=== PATIENT | male | born 1990 | race Caucasian/White ===

== ENCOUNTER 2018-01-18 20:39 | Emergency (ER) | payer OTHER ==
[2018-01-18 20:46] VITALS: RESP 18
[2018-01-18] MEDS ORDERED: SODIUM CHLORIDE 0.9% 1,000 ML IV STA (21:10)
[2018-01-18] MEDS ORDERED: SODIUM CHLORIDE 0.9% 500 ML IV STA (21:10)
[2018-01-18] MEDS ORDERED: RX INFO: IV CONTRAST WAS GIVEN 1 EACH MISC MISCELLANE PRN (21:10)
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
[2018-01-18 21:46] LABS: HCT 46.9 % (39.0-53.0); HGB 15.3 gm/dL (13.0-17.5); MCH 31.7 pg (25.0-35.0); MCHC 32.6 g/dL (31.0-37.0); Mean Platelet Volume 6.4; Platelet Count 418 k/uL (150-450); RBC 4.84 m/uL (4.30-5.90); RDW 12.3 % (11.5-15.5); WBC 6.1 k/uL (3.8-10.6)
[2018-01-18 21:53] LABS: Appearance,Urine Clear (Clear); Bilirubin,Urine Negative (Negative); Blood,Urine Moderate (Negative); Color,Urine Light Yellow; Glucose,Urine (UA) Negative (Negative); Ketones,Urine Negative (Negative); Leukocyte Esterase,Urine Negative (Negative); Mucus,Urine Rare /hpf; Nitrite,Urine Negative (Negative); PH, Urine 5.5 (5.0-8.0); Protein,Urine Negative (Negative); RBC,Urine 3 /hpf (0-5); Specific Gravity,Urine 1.004 (1.001-1.035); Urobilinogen,Urine <2.0 mg/dL (<2.0); WBC,Urine <1 /hpf (0-5)
[2018-01-18 21:56] LABS: ALT 58 U/L (21-72); AST 118 U/L (17-59); Albumin 4.7 g/dL (3.5-5.0); Alkaline Phosphatase 122 U/L (38-126); Anion Gap 19 mmol/L; Blood Urea Nitrogen 10 mg/dL (9-20); Calcium 9.3 mg/dL (8.4-10.2); Carbon Dioxide 27 mmol/L (22-30); Chloride 104 mmol/L (98-107); Glucose 90 mg/dL (74-99); Potassium 4.3 mmol/L (3.5-5.1); Sodium 150 mmol/L (137-145); Total Bilirubin 0.7 mg/dL (0.2-1.3); Total Protein 7.9 g/dL (6.3-8.2)
[2018-01-18 22:00] LABS: Amphetamine Screen,Urine Not Detected (NotDetected); Barbiturate Screen,Urine Not Detected (NotDetected); Benzodiazepines Screen,Urine Not Detected (NotDetected); Cocaine Screen,Urine Detected (NotDetected); Methadone Screen, Urine Not Detected (NotDetected); Opiate Screen,Urine Not Detected (NotDetected); Oxycodone Screen, Urine Not Detected (NotDetected); Phencyclidine Screen,Urine Not Detected (NotDetected); Tricyclic Antidepressant,Urine Not Detected (NotDetected); Urn Cannabinoid Scrn Not Detected (NotDetected)
[2018-01-18 22:02] LABS: Creatine Kinase 240 U/L (55-170)
[2018-01-18 22:06] LABS: Alcohol 349 mg/dL
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
--- NOTE | 2018-01-18 22:09 | XR ---
History pain. Comparison none. Technique single view. FINDINGS: Pelvic ring is intact. Proximal femurs and hip joints are intact. There is no sign of a fracture. Sac roiliac joints appear normal. CONCLUSION: Normal pelvis.
[2018-01-18 22:12] VITALS: BP 109/76; PULSE 89
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
[2018-01-18 22:15] LABS: Troponin I <0.012 ng/mL (0.000-0.034)
[2018-01-18 22:42] VITALS: TEMP 97.9
[2018-01-18 22:42] LABS: Basophils # (M) 0.24 k/uL (0-0.2); Eosinophils # (M) 0.61 k/uL (0-0.7); Lymphocytes # (M) 2.26 k/uL (1.0-4.8); Monocytes # (M) 0.67 k/uL (0-1.0); Neutrophils # (M) 2.32 k/uL (1.3-7.7); Neutrophils % (M) 38 %; Nucleated Red Blood Cells 0 /100 WBC (0-0); Total Cells Counted 100
== END 2018-01-18 22:43 | disposition home or self-care (01) ==
LOC: EC 20:39
DX: S60.811A Abrasion of right wrist, initial encounter (principal); F10.120 Alcohol abuse with intoxication, uncomplicated; Z87.891 Personal history of nicotine dependence; Z88.0 Allergy status to penicillin; Y90.8 Blood alcohol level of 240 mg/100 ml or more; V47.5XXA Car driver injured in collision with fixed or stationary object in traffic accident, initial encounter; Y92.410 Unspecified street and highway as the place of occurrence of the external cause
CPT/HCPCS: 36415; 93005; 80053; 82550; 82553; 84484; 85025; 81001; 80306; 80320; 72170; 71045; 72125; 70450; 71260; 74177; 99285; 96360; Q9967

== ENCOUNTER 2018-02-28 13:22 | Observation (INO) | payer OTHER ==
[2018-02-28] MEDS ORDERED: SODIUM CHLORIDE 0.9% 1,000 ML IV STA (13:37)
--- NOTE | 2018-02-28 13:57 | ED ---
Alcohol HPI - General Chief Complaint: Alcohol Stated Complaint: ETOH Time Seen by Provider: 02/28/18 13:35 Source: patient, RN notes reviewed Mode of arrival: ambulatory Limitations: altered mental status - History of Present Illness Initial Comments: This is a 27-year-old male brought to emergency department via EMS for alcohol intoxication. Patient was found laying on the ground sleeping. Patient does admit to daily alcohol use. Patient states he drank less than the fifth of alcohol today. Patient denies any physical complaints. Patient denies any chest pain, shortness breath, headache, dizziness, abdominal pain. Patient denies illicit drug use. - Related Data Allergies Allergy/AdvReac Type Severity Reaction Status Date / Time Penicillins Allergy Anaphylaxis Verified 02/28/18 13:31 Review of Systems ROS Statement: Those systems with pertinent positive or pertinent negative responses have been documented in the HPI. ROS Other: All systems not noted in ROS Statement are negative. Past Medical History Past Medical History: No Reported History History of Any Multi-Drug Resistant Organisms: MRSA Date of last positivie culture/infection: 2003 MDRO Source:: right arm Past Surgical History: No Surgical Hx Reported Past Psychological History: No Psychological Hx Reported Smoking Status: Former smoker Past Alcohol Use History: Abuse, Daily Past Drug Use History: None Reported General Exam Limitations: altered mental status General appearance: alert, in no apparent distress, appears intoxicated Head exam: Present: atraumatic, normocephalic, normal inspection Eye exam: Present: normal appearance, PERRL, EOMI. Absent: scleral icterus, conjunctival injection, periorbital swelling ENT exam: Present: normal exam, normal oropharynx, mucous membranes moist Neck exam: Present: normal inspection, full ROM. Absent: tenderness, meningismus, lymphadenopathy Respiratory exam: Present: normal lung sounds bilaterally. Absent: respiratory distress, wheezes, rales, rhonchi, stridor Cardiovascular Exam: Present: regular rate, normal rhythm, normal heart sounds. Absent: systolic murmur, diastolic murmur, rubs, gallop, clicks GI/Abdominal exam: Present: soft, normal bowel sounds. Absent: distended, tenderness, guarding, rebound, rigid Skin exam: Present: warm, dry, intact, normal color. Absent: rash Course Vital Signs 02/28/18 02/28/18 13:27 15:24 Temperature 97.2 F L 97.3 F L Pulse Rate 95 74 Respiratory 18 16 Rate Blood Pressure 118/72 101/64 O2 Sat by Pulse 95 97 Oximetry Medical Decision Making - Medical Decision Making 27-year-old male presented to emergency from it for alcohol intoxication. 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 Patient's blood alcohol level is 382. Patient be admitted for alcohol intoxication. - Lab Data Result diagrams: 02/28/18 14:00 02/28/18 14:00 Lab Results 02/28/18 02/28/18 02/28/18 Range/Units 14:00 14:00 15:24 WBC 7.3 (3.8-10.6) k/uL RBC 4.70 (4.30-5.90) m/uL Hgb 15.3 (13.0-17.5) gm/dL Hct 44.9 (39.0-53.0) % MCV 95.6 (80.0-100.0) fL MCH 32.6 (25.0-35.0) pg MCHC 34.1 (31.0-37.0) g/dL RDW 12.4 (11.5-15.5) % Plt Count 428 (150-450) k/uL Neutrophils % 48 % Lymphocytes % 34 % Monocytes % 7 % Eosinophils % 5 % Basophils % 2 % Neutrophils # 3.5 (1.3-7.7) k/uL Lymphocytes # 2.5 (1.0-4.8) k/uL Monocytes # 0.5 (0-1.0) k/uL Eosinophils # 0.4 (0-0.7) k/uL Basophils # 0.1 (0-0.2) k/uL Sodium 148 H (137-145) mmol/L Potassium 4.0 (3.5-5.1) mmol/L Chloride 105 (98-107) mmol/L Carbon Dioxide 23 (22-30) mmol/L Anion Gap 20 mmol/L BUN 8 L (9-20) mg/dL Creatinine 0.79 (0.66-1.25) mg/dL Est GFR (CKD-EPI)AfAm >90 (>60 ml/min/1.73 sqM) Est GFR (CKD-EPI)NonAf >90 (>60 ml/min/1.73 sqM) Glucose 89 (74-99) mg/dL Calcium 9.8 (8.4-10.2) mg/dL Magnesium 2.2 (1.6-2.3) mg/dL Total Bilirubin 2.4 H (0.2-1.3) mg/dL AST 133 H (17-59) U/L ALT 77 H (21-72) U/L Alkaline Phosphatase 107 (38-126) U/L Total Protein 8.2 (6.3-8.2) g/dL Albumin 5.0 (3.5-5.0) g/dL Amylase 74 (30-110) U/L Lipase 124 (23-300) U/L Urine Color Colorless Urine Appearance Clear (Clear) Urine pH 5.5 (5.0-8.0) Ur Specific [place] 1.002 (1.001-1.035) Urine Protein Negative (Negative) Urine Glucose (UA) Negative (Negative) Urine Ketones Negative (Negative) Urine Blood Negative (Negative) Urine Nitrite Negative (Negative) Urine Bilirubin Negative (Negative) Urine Urobilinogen <2.0 (<2.0) mg/dL Ur Leukocyte Esterase Negative (Negative) Urine Opiates Screen Not Detected (NotDetected) Ur Oxycodone Screen Not Detected (NotDetected) Urine Methadone Screen Not Detected (NotDetected) Ur Propoxyphene Screen Not Detected (NotDetected) Ur Barbiturates Screen Not Detected (NotDetected) U Tricyclic Antidepress Not Detected (NotDetected) Ur Phencyclidine Scrn Not Detected (NotDetected) Ur Amphetamines Screen Not Detected (NotDetected) U Methamphetamines Scrn Not Detected (NotDetected) U Benzodiazepines Scrn Not Detected (NotDetected) Urine Cocaine Screen Not Detected (NotDetected) U Marijuana (THC) Screen Not Detected (NotDetected) Serum Alcohol 382 mg/dL Disposition Clinical Impression: Alcoholic intoxication Disposition: ADMITTED IP TO THIS [facility] Condition: Stable Referrals: None,Stated [Primary Care Provider] - 1-2 days
[2018-02-28 14:22] LABS: Basophils # (A) 0.1 k/uL (0-0.2); Basophils % (A) 2 %; Eosinophils # (A) 0.4 k/uL (0-0.7); Eosinophils % (A) 5 %; HCT 44.9 % (39.0-53.0); HGB 15.3 gm/dL (13.0-17.5); Lymphocytes # (A) 2.5 k/uL (1.0-4.8); Lymphocytes % (A) 34 %; MCH 32.6 pg (25.0-35.0); MCHC 34.1 g/dL (31.0-37.0); MCV 95.6 fL (80.0-100.0); Mean Platelet Volume 6.2; Monocytes # (A) 0.5 k/uL (0-1.0); Monocytes % (A) 7 %; Neutrophils # (A) 3.5 k/uL (1.3-7.7); Neutrophils % (A) 48 %; Platelet Count 428 k/uL (150-450); RDW 12.4 % (11.5-15.5); WBC 7.3 k/uL (3.8-10.6)
[2018-02-28 14:31] LABS: ALT 77 U/L (21-72); AST 133 U/L (17-59); Alkaline Phosphatase 107 U/L (38-126); Amylase 74 U/L (30-110); Anion Gap 20 mmol/L; Blood Urea Nitrogen 8 mg/dL (9-20); Calcium 9.8 mg/dL (8.4-10.2); Carbon Dioxide 23 mmol/L (22-30); Chloride 105 mmol/L (98-107); Glucose 89 mg/dL (74-99); Lipase 124 U/L (23-300); Magnesium 2.2 mg/dL (1.6-2.3); Sodium 148 mmol/L (137-145); Total Bilirubin 2.4 mg/dL (0.2-1.3); Total Protein 8.2 g/dL (6.3-8.2)
[2018-02-28 14:45] LABS: Alcohol 382 mg/dL
[2018-02-28 15:42] LABS: Appearance,Urine Clear (Clear); Bilirubin,Urine Negative (Negative); Blood,Urine Negative (Negative); Color,Urine Colorless; Glucose,Urine (UA) Negative (Negative); Ketones,Urine Negative (Negative); Leukocyte Esterase,Urine Negative (Negative); Nitrite,Urine Negative (Negative); PH, Urine 5.5 (5.0-8.0); Protein,Urine Negative (Negative); Specific Gravity,Urine 1.002 (1.001-1.035); Urobilinogen,Urine <2.0 mg/dL (<2.0)
[2018-02-28 15:53] LABS: Amphetamine Screen,Urine Not Detected (NotDetected); Barbiturate Screen,Urine Not Detected (NotDetected); Benzodiazepines Screen,Urine Not Detected (NotDetected); Cocaine Screen,Urine Not Detected (NotDetected); Methadone Screen, Urine Not Detected (NotDetected); Opiate Screen,Urine Not Detected (NotDetected); Oxycodone Screen, Urine Not Detected (NotDetected); Phencyclidine Screen,Urine Not Detected (NotDetected); Tricyclic Antidepressant,Urine Not Detected (NotDetected); Urn Cannabinoid Scrn Not Detected (NotDetected)
[2018-02-28] MEDS ORDERED: ONDANSETRON 4 MG/2 ML VIAL IVP PRN (16:26)
[2018-02-28] MEDS ORDERED: LORazepam 2 MG/ML INJ IV PRN ×3 (16:27)
[2018-02-28] MEDS ORDERED: SODIUM CHLORIDE 0.9% 1,000 ML with MVI, ADULT NO.4 WITH VIT K 10 ML, THIAMINE 100 MG, F... IV ONE ×4 (17:00)
[2018-03-01 05:55] VITALS: BP 110/64; PULSE 87; RESP 20; TEMP 97.8
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
--- NOTE | 2018-03-02 00:26 | P.DS ---
Providers Date of admission: 02/28/18 16:25 Expected date of discharge: 03/01/18 Attending physician: Davidson Penaloza Primary care physician: Stated None Hospital Course: Discharge diagnosis Acute alcohol intoxication. On admission Alcohol abuse. 1 pint per day Asthma stable Please history of smoking Elevated liver enzymes possible alcohol hepatitis Mild dehydration with elevated sodium level 148 DVT prophylaxis Hospital course Patient is a 27-year-old male with a known history of asthma and previous history of smoking came to ER with alcohol intoxication. Patient was found laying on the ground sleeping. Patient does admit to daily alcohol use. Patient states he drank less than the fifth of alcohol today. Patient denies any physical complaints. Patient denies any chest pain, shortness breath, headache, dizziness, abdominal pain. Patient denies illicit drug use. Patient was intoxicated on admission 03/01/2018 Patient is more awake and oriented today. Denied any complaints of chest pain or short of breath no nausea vomiting or abdominal pain. Possible discharge home today. Tolerating oral diet. No other issues currently not in alcohol withdrawal. Plan: Patient was continued on IV fluids with thiamine and folic acid and monitor for withdrawal symptoms. Continue the symptomatic management and follow closely. Patient did improve clinically stable to be discharged home. Patient was counseled extensively for alcohol abuse. Patient will be discharged home in stable condition Discharge physical examination was done and vitals reviewed. Vital Signs - 24 hr 03/01/18 05:54 Temperature 97.8 F Pulse Rate [ 87 Right] Respiratory 20 Rate Blood Pressure 110/64 [Left Arm] O2 Sat by Pulse 97 Oximetry Patient Condition at Discharge: Stable Plan - Discharge Summary Discharge Rx Participant: Yes New Discharge Prescriptions: New Multivitamin [Multivitamins Adult Gummies] 1 each PO DAILY #30 tablet Thiamine [Vitamin B-1] 100 mg PO DAILY #14 tablet Discharge Medication List Multivitamin [Multivitamins Adult Gummies] 1 each PO DAILY #30 tablet 03/01/18 [ Rx] Thiamine [Vitamin B-1] 100 mg PO DAILY #14 tablet 03/01/18 [Rx] Follow up Appointment(s)/Referral(s): None,Stated [Primary Care Provider] - 1-2 days ([place] [facility]) Patient Instructions/Handouts: Thiamine (By mouth), Multivitamins, Adult Formula (By mouth), Alcohol Intoxication (DC) Activity/Diet/Wound Care/Special Instructions: No alcohol. Activity as tolerated. Diet as tolerated. Discharge Disposition: HOME SELF-CARE
== END 2018-03-01 12:45 | disposition home or self-care (01) ==
LOC: EC 13:22 → 5MS5E 16:25
PROVIDERS: ADMIT Internal Medicine; ATTEND Internal Medicine
DX: F10.129 Alcohol abuse with intoxication, unspecified (principal); Y90.8 Blood alcohol level of 240 mg/100 ml or more; E86.0 Dehydration; R74.8 Abnormal levels of other serum enzymes; J45.909 Unspecified asthma, uncomplicated; K58.9 Irritable bowel syndrome, unspecified; Z80.3 Family history of malignant neoplasm of breast; Z86.14 Personal history of Methicillin resistant Staphylococcus aureus infection; Z87.891 Personal history of nicotine dependence; Z88.0 Allergy status to penicillin; Z71.41 Alcohol abuse counseling and surveillance of alcoholic
CPT/HCPCS: 96360; 99285; 36415; 80053; 82150; 83690; 83735; 85025; 81003; 80306; 80320; G0378 ×2; J3411

== ENCOUNTER 2021-06-20 06:18 | Emergency (ER) | payer OTHER ==
[2021-06-20 06:25] VITALS: TEMP 98.7
[2021-06-20] MEDS ORDERED: KETOROLAC 15 MG/ML 1 ML VIAL IVP STA (06:37)
[2021-06-20] MEDS ORDERED: SODIUM CHLORIDE 0.9% 1,000 ML IV STA ×2 (06:37→08:07)
[2021-06-20] MEDS ORDERED: ONDANSETRON 4 MG/2 ML VIAL IVP STA (06:37)
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
[2021-06-20 07:29] LABS: Basophils # (A) 0.1 k/uL (0-0.2); Basophils % (A) 1 %; Eosinophils # (A) 0.3 k/uL (0-0.7); Eosinophils % (A) 2 %; HCT 46.2 % (39.0-53.0); Lymphocytes % (A) 15 %; MCH 32.3 pg (25.0-35.0); MCHC 34.6 g/dL (31.0-37.0); MCV 93.5 fL (80.0-100.0); Monocytes # (A) 0.7 k/uL (0-1.0); Monocytes % (A) 6 %; Neutrophils # (A) 9.4 k/uL (1.3-7.7); Neutrophils % (A) 73 %; Platelet Count 373 k/uL (150-450); RBC 4.95 m/uL (4.30-5.90); WBC 12.8 k/uL (3.8-10.6)
[2021-06-20 07:34] LABS: ALT 17 U/L (4-49); AST 52 U/L (17-59); African American GFR (CKD) >90 (>60 ml/min/1.73 sqM); Albumin 4.4 g/dL (3.5-5.0); Alkaline Phosphatase 74 U/L (38-126); Anion Gap 14 mmol/L; Blood Urea Nitrogen 12 mg/dL (9-20); Carbon Dioxide 26 mmol/L (22-30); Chloride 98 mmol/L (98-107); Glucose 100 mg/dL (74-99); Lipase 118 U/L (23-300); Non-African American GFR(CKD) >90 (>60 ml/min/1.73 sqM); Potassium 3.6 mmol/L (3.5-5.1); Sodium 138 mmol/L (137-145); Total Protein 7.9 g/dL (6.3-8.2)
[2021-06-20 07:40] LABS: Appearance,Urine Clear (Clear); Bilirubin,Urine 1+ (Negative); Blood,Urine Negative (Negative); Color,Urine Orange; Glucose,Urine (UA) Negative (Negative); Ketones,Urine 3+ (Negative); Leukocyte Esterase,Urine Negative (Negative); Mucus,Urine Many /hpf; Nitrite,Urine Negative (Negative); Protein,Urine 1+ (Negative); RBC,Urine 1 /hpf (0-5); Squamous Epithelial Cell,Urine 2 /hpf (0-4); WBC,Urine 1 /hpf (0-5)
[2021-06-20 08:22] VITALS: RESP 18
--- NOTE | 2021-06-20 09:12 | US ---
EXAMINATION TYPE: US abdomen limited DATE OF EXAM: 06/20/2021 COMPARISON: CT 01/18/18 CLINICAL HISTORY: rt side abdominal/flank pain, elevated bilirubin. N/V x 5 days EXAM MEASUREMENTS: Liver Length: 15.5 cm Gallbladder Wall: 0.1 cm CBD: 0.4 cm Right Kidney: 11.7 x 5.5 x 4.4 cm Pancreas: Tail obscured by overlying bowel gas Liver: wnl Gallbladder: No stones seen, 2 small polyps Evidence for sonographic Dawkins's sign: No CBD: wnl Right Kidney: No hydronephrosis or masses seen IMPRESSION: 2 small gallbladder polyps noted.
[2021-06-20] MEDS ORDERED: METOCLOPRAMIDE 5 MG/ML 2 ML VIAL IVP STA (09:36)
[2021-06-20 09:42] VITALS: BP 125/95; PULSE 82
== END 2021-06-20 10:25 | disposition home or self-care (01) ==
LOC: EC 06:18
DX: R11.2 Nausea with vomiting, unspecified (principal); E80.7 Disorder of bilirubin metabolism, unspecified; J45.909 Unspecified asthma, uncomplicated; F12.90 Cannabis use, unspecified, uncomplicated; Z88.0 Allergy status to penicillin; Z79.899 Other long term (current) drug therapy
CPT/HCPCS: 99284; 96374; 96375 ×2; 96361 ×2; 36415; 80053; 83690; 85025; 81001; 76705; J2765; J2405; J1885

== ENCOUNTER → 2021-07-05 | Outpatient (CLI) | payer OTHER ==
--- NOTE | 2021-07-05 10:01 | CT ---
EXAMINATION TYPE: CT abdomen wo con DATE OF EXAM: 07/05/2021 COMPARISON: CT 01/18/2018 HISTORY: rt flank pain, nausea and vomiting, loss of appetite CT DLP: 193.6 mGycm Automated exposure control for dose reduction was used. TECHNIQUE: Helical acquisition of images was performed from the lung bases through the top of iliac crest to include entire abdomen. CONTRAST: Performed without Oral Contrast and without IV contrast. FINDINGS: Lack of contrast could compromise sensitivity. LUNG BASES: No significant abnormality is appreciated. LIVER/GB: Liver shows low attenuation likely due to hepatic steatosis. Gallbladder is unremarkable. PANCREAS: No significant abnormality is seen. SPLEEN: No significant abnormality is seen. ADRENALS: No significant abnormality is seen. KIDNEYS: Punctate nonobstructive calcification present within the right kidney midpole measures only 3 to 4 mm. BOWEL: Fat halo sign noted within the colon may be normal variant. LYMPH NODES: No significan abnormality is appreciated. OSSEOUS STRUCTURES: There is a spinal curvature. FREE AIR: No Free Air visible ASCITES: None visible. RETROPERITONEAL ADENOPATHY: No Retroperitoneal Adenopathy visible. OTHER: IMPRESSION: NONOBSTRUCTIVE NEPHROLITHIASIS ON THE RIGHT. HEPATIC STEATOSIS. Noncontrast exam.
== END | disposition home or self-care (01) ==
LOC: RADCTMAIN 07:32
PROVIDERS: ATTEND Physician Assistant
DX: N20.0 Calculus of kidney (principal); K76.0 Fatty (change of) liver, not elsewhere classified
CPT/HCPCS: 74150

== ENCOUNTER 2021-08-17 10:59 | Inpatient (IN) | payer OTHER ==
[2021-08-17] MEDS ORDERED: ONDANSETRON 4 MG/2 ML VIAL IVP STA (13:30)
[2021-08-17] MEDS ORDERED: PANTOPRAZOLE 40 MG/10 ML VIAL IVP STA (13:30)
[2021-08-17] MEDS ORDERED: MORPHINE SULFATE 4 MG/ML SYRINGE IV STA (13:30)
[2021-08-17] MEDS ORDERED: SODIUM CHLORIDE 0.9% 1,000 ML IV STA (13:30)
[2021-08-17 13:31] LABS: Glucose,Whole Blood 112 mg/dL (75-99)
[2021-08-17] MEDS ORDERED: LORazepam 2 MG/ML INJ IV STA (13:31)
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
--- NOTE | 2021-08-17 14:39 | XR ---
EXAMINATION TYPE: XR KUB DATE OF EXAM: 08/17/2021 2:28 PM CLINICAL HISTORY: Pain and vomiting. TECHNIQUE: Two Upright KUB images of the abdomen are obtained. COMPARISON: Abdominal x-ray August 19, 2013. CT abdomen July 05, 2021 FINDINGS: Gas is seen in nondistended stomach. Scattered gas is seen in non-distended small and large bowel loops. There is no visceromegaly, pneumoperitoneum, or suspicious calcification appreciated. S cattered bilateral pelvic phleboliths redemonstrated. The lung bases are clear and the osseous struct ures are intact. IMPRESSION: Overall nonobstructive bowel gas pattern.
[2021-08-17 14:42] LABS: ALT 150 U/L (4-49); AST 541 U/L (17-59); African American GFR (CKD) >90 (>60 ml/min/1.73 sqM); Albumin 4.6 g/dL (3.5-5.0); Alcohol <10 mg/dL; Alkaline Phosphatase 154 U/L (38-126); Amylase 65 U/L (30-110); Anion Gap 18 mmol/L; Blood Urea Nitrogen 9 mg/dL (9-20); Calcium 9.5 mg/dL (8.4-10.2); Carbon Dioxide 20 mmol/L (22-30); Chloride 100 mmol/L (98-107); Glucose 115 mg/dL (74-99); Lipase 220 U/L (23-300); Magnesium 1.2 mg/dL (1.6-2.3); Non-African American GFR(CKD) >90 (>60 ml/min/1.73 sqM); Potassium 3.9 mmol/L (3.5-5.1); Sodium 138 mmol/L (137-145); Total Protein 7.6 g/dL (6.3-8.2)
[2021-08-17 14:43] LABS: Basophils % (A) 0 %; Eosinophils % (A) 0 %; HCT 45.7 % (39.0-53.0); HGB 15.6 gm/dL (13.0-17.5); Lymphocytes # (A) 0.6 k/uL (1.0-4.8); Lymphocytes % (A) 6 %; MCH 32.9 pg (25.0-35.0); MCHC 34.1 g/dL (31.0-37.0); MCV 96.4 fL (80.0-100.0); Mean Platelet Volume 8.1; Monocytes # (A) 0.7 k/uL (0-1.0); Monocytes % (A) 6 %; Neutrophils # (A) 8.8 k/uL (1.3-7.7); Neutrophils % (A) 87 %; Platelet Count 266 k/uL (150-450); RBC 4.74 m/uL (4.30-5.90); RDW 13.8 % (11.5-15.5); WBC 10.1 k/uL (3.8-10.6)
[2021-08-17 14:49] LABS: INR 1.1 (<1.2); Prothrombin Time 11.4 sec (9.0-12.0)
[2021-08-17] MEDS ORDERED: SODIUM CHLORIDE 0.9% 1,000 ML IV ONE (14:50)
[2021-08-17] MEDS ORDERED: MAGNESIUM SULFATE-D5W PMX 1 GM in DEXTROSE/WATER 1 100ML.BAG IVPB ONE (14:51)
[2021-08-17 14:56] LABS: Partial Thromboplastin Time 21.6 sec (22.0-30.0)
--- NOTE | 2021-08-17 15:35 | HP ---
HISTORY AND PHYSICAL DATE OF SERVICE: 08/17/2021 CHIEF COMPLAINT: Nausea and vomiting as well as shaking. HISTORY OF PRESENT ILLNESS: This 31-year-old gentleman with a past medical history of multiple medical problems, including history of asthma, history of allergies, history of MRSA, history of motion sickness, history of EtOH abuse, being followed by Dr. Murray in the [facility] in the outpatient setting, is complaining of weakness and tremors since yesterday. The patient does not have any fever. The patient is tremulous. Patient apparently had nausea and was unable to keep anything down. Patient came to [facility] and was admitted for further evaluation and treatment. The patient was drinking alcohol, a pint a day, and according to the patient and his , they stopped alcohol about a month ago without much problem. There is no history of any fever, rigors or chills. No history of headache, loss of consciousness, seizures at this time. PAST MEDICAL HISTORY: History of asthma, history of motion sickness, EtOH. HOME MEDICATIONS: None. ALLERGIES: PENICILLIN. FAMILY HISTORY: History of breast cancer and skin cancer in the family. SOCIAL HISTORY: History of alcohol. Previous history of smoking. History of THC. REVIEW OF SYSTEMS: ENT: No diminished hearing. No diminished vision. CARDIOVASCULAR SYSTEM: No angina, palpitations. RESPIRATORY SYSTEM: No cough, hemoptysis. GI: As mentioned earlier. : No dysuria. NERVOUS SYSTEM: No numbness, weakness. ALLERGY/IMMUNOLOGY: No asthma or hay fever. MUSCULOSKELETAL: As mentioned earlier. HEMATOLOGY/ONCOLOGY: No history of anemia. ENDOCRINE: No history of diabetes or hypothyroidism. CONSTITUTIONAL: As mentioned earlier. DERMATOLOGY: Negative. RHEUMATOLOGY: Negative. PSYCHIATRY: As mentioned earlier. PHYSICAL EXAMINATION: Patient alert and oriented x3. Pulse 104, blood pressure 143/89, respiration 20, temperature 97.8, pulse ox 97% on room air. HEENT: Conjunctivae normal. NECK: No jugular venous distention. CARDIOVASCULAR: S1, S2 muffled. RESPIRATION: Breath sounds diminished at the bases. A few scattered rhonchi and crackles. Expiratory wheezing also present. ABDOMEN: Soft. Mild diffuse discomfort. No guarding. No rigidity. No mass palpable. LEGS: No edema. No swelling. NERVOUS SYSTEM: Higher functions as mentioned earlier. Moves all 4 limbs. No focal motor or sensory deficit. LYMPHATICS: No lymph node palpable in neck, axillae or groin. SKIN: No ulcer, rash, bleeding. JOINTS: No active deforming arthropathy. LABS: Glucose 112. Other labs are awaited. ASSESSMENT: 1. Incessant nausea and vomiting; possible acute gastritis. 2. Severe shakes and nausea. Rule out withdrawal syndromes. 3. History of ETOH; last intake a month ago, according to the patient and the family. 4. History of chronic intermittent asthma, allergy-induced. 5. History of hematochezia. 6. History of migraine. 7. History of whiplash. 8. MRSA. 9. Remote history of nicotine dependence. 10.History of THC. 11.FULL CODE. RECOMMENDATIONS AND DISCUSSION: In this 31-year-old gentleman who presented with multiple complex medical issues, we will monitor the patient closely, continue the current medications, continue symptomatic treatment. Will initiate proton pump inhibitors. Symptomatic treatment with Ativan. Otherwise, the patient has not taken alcohol for the last one month, according to the family. I would also recommend cultures and rule out other causes of his symptoms as well. Overall guarded prognosis because of multiple complex medical issues. Further recommendations to follow. I would also recommend supplement vitamins. See orders for further details. MMODL / IJN: [id number] / MTDD
[2021-08-17] MEDS ORDERED: diphenhydrAMINE 50 MG/ML 1 ML VIAL IVP STA (16:12)
--- NOTE | 2021-08-17 16:34 | US ---
EXAMINATION TYPE: US gallbladder DATE OF EXAM: 08/17/2021 COMPARISON: CT July 05, 2021 CLINICAL HISTORY: Abdominal pain, nausea vomiting, hyperbilirubinemia. Abdominal pain, nausea, vomiti ng, hyperbilirubinemicic per order. EXAM MEASUREMENTS: Liver Length: 15.5 cm Gallbladder Wall: 0.2 cm CBD: 0.43 cm Right Kidney: 11.3 x 5.6 x 3.7 cm Limited due to gas. Pancreas: Tail not well seen due to gas. Liver: Appears very coarse with increased echogenicity. Gallbladder: Small hyperechoic area seen adjacent to wall: 0.7 x 0.4 x 0.5 cm. Evidence for sonographic Dawkins's sign: No CBD: Portions seen appear wnl. Right Kidney: No hydronephrosis or masses seen Visualized pancreas unremarkable. Visualized liver heterogeneously hyperechoic in appearance. No new surrounding ascites. No new intrahepatic or extra hepatic biliary dilatation. No shadowing mobile gal lstones within gallbladder lumen possible tiny polyp. No right-sided hydronephrosis. IMPRESSION: Heterogeneous hyperechoic appearance of liver consistent with known diffuse fatty infiltr ation. No new ascites or biliary dilatation noted.
[2021-08-17] MEDS ORDERED: NALOXONE 0.4 MG/ML 1 ML VIAL IV PRN (17:08)
[2021-08-17] MEDS ORDERED: PROCHLORPERAZINE SUPPOSITORY 25 MG SUPP RECTAL PRN (17:08)
[2021-08-17] MEDS ORDERED: LORazepam 2 MG/ML INJ IV PRN (17:10)
[2021-08-17] MEDS ORDERED: THIAMINE 100 MG/ML 2 ML VIAL IM STA (17:10)
[2021-08-17 17:18] LABS: Appearance,Urine Cloudy (Clear); Bilirubin,Urine Negative (Negative); Blood,Urine Trace (Negative); Color,Urine Orange; Glucose,Urine (UA) Negative (Negative); Ketones,Urine 2+ (Negative); Leukocyte Esterase,Urine Small (Negative); Mucus,Urine Many /hpf; Nitrite,Urine Negative (Negative); PH, Urine 6.5 (5.0-8.0); Protein,Urine 2+ (Negative); RBC,Urine 51 /hpf (0-5); Specific Gravity,Urine 1.037 (1.001-1.035); Squamous Epithelial Cell,Urine 8 /hpf (0-4); WBC,Urine 9 /hpf (0-5)
[2021-08-17 17:20] LABS: Amphetamine Screen,Urine Not Detected (NotDetected); Barbiturate Screen,Urine Not Detected (NotDetected); Benzodiazepines Screen,Urine Detected (NotDetected); Cocaine Screen,Urine Not Detected (NotDetected); Methadone Screen, Urine Not Detected (NotDetected); Opiate Screen,Urine Detected (NotDetected); Oxycodone Screen, Urine Not Detected (NotDetected); Phencyclidine Screen,Urine Not Detected (NotDetected); Tricyclic Antidepressant,Urine Not Detected (NotDetected); Urn Cannabinoid Scrn Detected (NotDetected)
[2021-08-17] MEDS: ONDANSETRON 4 MG/2 ML VIAL IVP PRN ×2 (17:46→22:08)
[2021-08-17] MEDS: LORazepam 2 MG/ML INJ IV PRN ×2 (17:55→22:06)
[2021-08-17] MEDS: SODIUM CHLORIDE 0.9% 1,000 ML IV SCH ×2 (17:55→21:04)
[2021-08-17] MEDS: PANTOPRAZOLE 40 MG/10 ML VIAL IVP SCH (22:08)
[2021-08-18] MEDS: THIAMINE 100 MG TAB PO SCH ×2 (07:03→16:53)
[2021-08-18] MEDS: SODIUM CHLORIDE 0.9% 1,000 ML IV SCH ×2 (07:03→16:53)
[2021-08-18] MEDS: PANTOPRAZOLE 40 MG/10 ML VIAL IVP SCH ×2 (07:03→22:02)
[2021-08-18 09:01] LABS: Basophils # (A) 0.08 X 10*3/uL (0.00-0.10); Basophils % (A) 1.6 %; Eosinophils # (A) 0.03 X 10*3/uL (0.04-0.35); Eosinophils % (A) 0.6 %; HCT 38.9 % (39.6-50.0); HGB 12.7 g/dL (13.0-17.0); Lymphocytes # (A) 1.44 X 10*3/uL (0.90-5.00); Lymphocytes % (A) 29.7 %; MCHC 32.6 g/dL (32.0-37.0); Mean Platelet Volume 10.6 fL (9.5-12.2); Monocytes # (A) 0.82 X 10*3/uL (0.20-1.00); Monocytes % (A) 16.9 %; Neutrophils # (A) 2.47 X 10*3/uL (1.80-7.70); Platelet Count 199 X 10*3/uL (140-440); RBC 3.97 X 10*6/uL (4.40-5.60); RDW 15.1 % (11.5-14.5); WBC 4.85 X 10*3/uL (4.50-10.00)
[2021-08-18 10:08] LABS: African American GFR (CKD) 143.7 (60.0-200.0); Albumin 3.5 g/dL (3.8-4.9); Albumin/Globulin Ratio 1.84 (1.60-3.17); BUN/Creat Ratio 11.29 Ratio (12.00-20.00); Blood Urea Nitrogen 7.9 mg/dL (9.0-27.0); Calcium 8.5 mg/dL (8.7-10.3); Globulin 1.9 g/dL (1.6-3.3); Potassium 3.9 mmol/L (3.5-5.5); Total Bilirubin 4.6 mg/dL (0.30-1.20); Total Protein 5.4 g/dL (6.2-8.2)
[2021-08-18 12:06] LABS: Hepatitis A Antibody IgM Nonreactive (Nonreactive); Hepatitis B Core IgM Nonreactive (Nonreactive); Hepatitis B Surface Antigen Nonreactive (Nonreactive); Hepatitis C IgG Antibody Nonreactive (Nonreactive)
[2021-08-18] MEDS: LORazepam 2 MG/ML INJ IV PRN ×2 (13:04→20:30)
[2021-08-18] MEDS ORDERED: Magnesium Replacement Protocol 1 EACH MISC MISCELLANE PRN (16:43)
--- NOTE | 2021-08-18 17:57 | PN ---
PROGRESS NOTE DATE OF SERVICE: 08/18/2021 This 31-year-old gentleman who was admitted with incessant nausea and vomiting also has a history of alcohol. The patient also had elevated bilirubin, possibly hepatitis. A gallbladder ultrasound was also done which showed heterogeneous possibly secondary to diffuse fatty infiltration. No chest pain. No palpitations. No fever. Past medical history reviewed. REVIEW OF SYSTEMS: CARDIOVASCULAR SYSTEM: No angina. RESPIRATION: As mentioned earlier. GI: As mentioned earlier. : No dysuria. NERVOUS SYSTEM: No numbness, weakness. CURRENT MEDICATIONS: Reviewed. They include Ativan, magnesium, Narcan, Zofran, Protonix, vitamin B1. PHYSICAL EXAMINATION: Patient is alert and oriented x3. Pulse 63, blood pressure 115/72, respiration 18, temperature 98.7, pulse ox 99% on room air. HEENT: Conjunctivae icteric. Oral mucosa moist. NECK: No jugular venous distention. CARDIOVASCULAR: S1, S2 muffled. RESPIRATION: Breath sounds diminished at the bases. A few scattered rhonchi. ABDOMEN: Soft, non-tender. NERVOUS SYSTEM: No focal deficit. LABS: WBC 4.2, hemoglobin 12.7. Otherwise, calcium is 8.5 and bilirubin is 4.6. AST is 485 and ALT is 138. Hepatitis panel is negative. ASSESSMENT: 1. Incessant nausea and vomiting, possibly acute gastritis. 2. Severe shakes and nausea, possibly withdrawal syndrome. 3. Possible delirium tremens. 4. History of ETOH and alcoholic hepatitis possibly. 5. History of chronic intermittent asthma, allergy-induced. 6. History of hematochezia. 7. History of migraine. 8. History of whiplash. 9. MRSA. 10.Remote history of nicotine dependence. 11.History of THC. 12.Hypomagnesemia. 13.FULL CODE. RECOMMENDATIONS AND DISCUSSION: I recommend to continue current medications, continue with the monitoring, symptomatic treatment. Hepatitis panel is negative at this time. I recommend repeat labs. Monitor bilirubin closely. I would also check serum ammonia, repeat labs. Guarded prognosis because of multiple complex medical issues. Further recommendations to follow. Lactic acid has normalized. Magnesium will be checked and corrected. MMODL / IJN: [id number] / MTDD
[2021-08-18] MEDS: ONDANSETRON 4 MG/2 ML VIAL IVP PRN (19:27)
[2021-08-19] MEDS: LORazepam 2 MG/ML INJ IV PRN ×4 (00:25→22:14)
[2021-08-19] MEDS: PANTOPRAZOLE 40 MG/10 ML VIAL IVP SCH ×2 (08:14→22:14)
[2021-08-19] MEDS: THIAMINE 100 MG TAB PO SCH ×2 (08:14→17:46)
[2021-08-19 11:34] LABS: Magnesium 1.8 mg/dL (1.5-2.4)
[2021-08-19 11:41] LABS: Basophils # (A) 0.07 X 10*3/uL (0.00-0.10); Basophils % (A) 1.2 %; Eosinophils # (A) 0.07 X 10*3/uL (0.04-0.35); Eosinophils % (A) 1.2 %; HCT 37.7 % (39.6-50.0); HGB 12.3 g/dL (13.0-17.0); Lymphocytes # (A) 1.55 X 10*3/uL (0.90-5.00); Lymphocytes % (A) 26.4 %; MCH 31.9 pg (27.0-32.0); MCHC 32.6 g/dL (32.0-37.0); MCV 97.7 fL (80.0-97.0); Mean Platelet Volume 10.8 fL (9.5-12.2); Monocytes # (A) 0.77 X 10*3/uL (0.20-1.00); Monocytes % (A) 13.1 %; Neutrophils % (A) 57.8 %; Platelet Count 180 X 10*3/uL (140-440); RBC 3.86 X 10*6/uL (4.40-5.60); RDW 14.6 % (11.5-14.5); WBC 5.88 X 10*3/uL (4.50-10.00)
[2021-08-19 11:43] LABS: African American GFR (CKD) 143.7 (60.0-200.0); Albumin 3.4 g/dL (3.8-4.9); Albumin/Globulin Ratio 1.89 (1.60-3.17); Anion Gap 10.7 mmol/L (10.00-18.00); BUN/Creat Ratio 8.14 Ratio (12.00-20.00); Blood Urea Nitrogen 5.7 mg/dL (9.0-27.0); Calcium 8.1 mg/dL (8.7-10.3); Carbon Dioxide 24.3 mmol/L (20.0-27.5); Globulin 1.8 g/dL (1.6-3.3); Potassium 3.9 mmol/L (3.5-5.5); Total Bilirubin 5.6 mg/dL (0.30-1.20); Total Protein 5.2 g/dL (6.2-8.2)
[2021-08-19] MEDS: SODIUM CHLORIDE 0.9% 1,000 ML IV SCH ×3 (12:07→17:46)
--- NOTE | 2021-08-19 13:39 | P.PN ---
Subjective Progress Note Date: 08/19/21 This is a 31-year-old male who was recently admitted with incessant nausea and vomiting also with a history of alcohol and is being closely monitored. Patient continues to have elevated bilirubin possibly hepatitis and bilirubin is elevated again today although liver functions are trending down. Patient is maintained on CIWA protocol and appears to be actively withdrawing with shakes. Patient denies any nausea or vomiting and tolerating diet. Lengthy discussion was had with the patient about discussing with family about ongoing alcohol use is patient could potentially benefit from alcohol rehab in the outpatient setting. Patient denies any chest pain or shortness of breath. Patient is extremely anxious with tremens noted. Irina level elevated at 40 today and will continue to monitor and repeat a.m. labs. Labs: White blood count is 5.88, hemoglobin is 12.3, platelets are 180, sodium is 135, potassium is 3.9, creatinine is 0.7, magnesium is 1.8, bilirubin is 5.6, AST down to 292, ALT down at 127, ammonia 40 Review of systems: Constitutional: No reports of fatigue, fever, or chills, extremely anxious Cardiovascular: No reports of chest pain or palpitations Respiratory: No reports of shortness of breath or cough GI: No reports of nausea, vomiting, or diarrhea : No reports of dysuria or retention Neurovascular: No reports of weakness or numbness All medications have been reviewed Active Medications Sodium Chloride (Saline 0.9%) 1,000 mls @ 130 mls/hr IV .Q7H42M [facility] Last Admin: 08/19/21 12:08 Dose: Not Given Documented by: Lorazepam (Lorazepam 2 Mg/Ml Inj) 1 mg IV Q2HR PRN PRN Reason: CIWA 8 or 9 Last Admin: 08/19/21 08:25 Dose: 1 mg Documented by: Lorazepam (Lorazepam 2 Mg/Ml Inj) 1 mg IV Q1HR PRN PRN Reason: CIWA 10 to 15 Last Admin: 08/17/21 17:55 Dose: 1 mg Documented by: Lorazepam (Lorazepam 2 Mg/Ml Inj) 2 mg IV Q10M PRN PRN Reason: CIWA 16 or higher Stop: 08/19/21 17:10 Miscellaneous Information (Magnesium Replacement Protocol 1 Each Misc) 1 each MISCELLANE DAILY PRN; Protocol PRN Reason: Per Protocol Naloxone HCl (Naloxone 0.4 Mg/Ml 1 Ml Vial) 0.2 mg IV Q2M PRN PRN Reason: Opioid Reversal Ondansetron HCl (Ondansetron 4 Mg/2 Ml Vial) 4 mg IVP Q8HR PRN PRN Reason: Nausea And Vomiting Last Admin: 08/18/21 19:27 Dose: 4 mg Documented by: Pantoprazole Sodium (Pantoprazole 40 Mg/10 Ml Vial) 40 mg IVP BID [facility] Last Admin: 08/19/21 08:14 Dose: 40 mg Documented by: Prochlorperazine Maleate (Prochlorperazine Suppository 25 Mg Supp) 25 mg RECTAL Q12HR PRN PRN Reason: Nausea And Vomiting Thiamine HCl (Thiamine 100 Mg Tab) 100 mg PO BID-W/MEALS [facility] Last Admin: 08/19/21 08:14 Dose: 100 mg Documented by: Physical Exam: Gen: This is a 31-year-old male awake, alert and oriented 3, well-developed, well-nourished. Anxious. Temp is 98.2F, pulse is 68, respirations are 18, blood pressure is 113/80, oxygen saturation is 98% on room air. HEENT: Head is atraumatic, normocephalic. Pupils equal, round. Sclerae is anicteric. NECK: Supple. No JVD. No lymphadenopathy. No thyromegaly. LUNGS: Diminished breath sounds bilaterally with no wheezing or rhonchi noted. No intercostal retractions. HEART: S1, S2 are muffled ABDOMEN: Soft. Bowel sounds are present. No masses. No tenderness. EXTREMITIES: No pedal edema. No calf tenderness. NEUROLOGICAL: Patient is awake, alert and oriented x3. Cranial nerves 2 through 12 are grossly intact. Tremens noted Assessment: Increased nausea and vomiting, possibly acute gastritis Severe shakes and nausea, possibly withdrawal syndrome Possible delirium tremens History of EtOH and alcoholic hepatitis possibly history of chronic intermittent asthma, ALLERGY induced History of hematochezia History of migraine history of whiplash MRSA Remote history of nicotine dependence History of THC Hypomagnesemia Possible PTSD as patient served in the [employer] Full code Plan: Recommend continue current medications and management and symptomatic treatment. We'll continue CIWA protocol as patient continues to have shakes and tremens noted. Will add low-dose oral Ativan as well for continued anxiety. Had a very lengthy discussion with the patient about discussing with his family about his continued alcohol use and possible alcohol rehab and needing a strong support system. Patient became extremely anxious during conversation and mildly guarded with questions and answers as he states he did go to alcohol rehab in the past before. Ammonia elevated although patient is alert and oriented 3 we'll monitor and continue with IV fluids and repeat labs. Patient denies any abdominal pain and will slowly increase diet as tolerated. Patient's LFTs are trending down and will repeat a.m. labs. Strongly encouraged discussing with family about treatment plan moving forward and possible alcohol rehab. We'll continue to monitor closely. Possible discharge in 24-48 hours. Objective - Vital Signs Vital signs: Vital Signs Temp 98.2 F 08/19/21 07:28 Pulse 68 08/19/21 07:28 Resp 18 08/19/21 07:28 BP 113/80 08/19/21 07:28 Pulse Ox 98 08/19/21 07:28 Intake & Output 08/18/21 08/19/21 08/19/21 18:59 06:59 18:59 Other: # Voids 5 - Labs CBC & Chem 7: 08/19/21 05:13 08/19/21 05:13 Labs: Abnormal Lab Results - Last 24 Hours (Table) 08/19/21 08/19/21 08/19/21 Range/Units 05:13 05:13 05:13 RBC 3.86 L (4.40-5.60) X 10*6/uL Hgb 12.3 L (13.0-17.0) g/dL Hct 37.7 L (39.6-50.0) % MCV 97.7 H (80.0-97.0) fL RDW 14.6 H (11.5-14.5) % BUN 5.7 L (9.0-27.0) mg/dL BUN/Creatinine Ratio 8.14 L (12.00-20.00) Ratio Calcium 8.1 L (8.7-10.3) mg/dL Total Bilirubin 5.60 H (0.30-1.20) mg/dL AST 292 H (14-35) U/L ALT 127 H (10-49) U/L Ammonia 40 H (<30) umol/L Total Protein 5.2 L (6.2-8.2) g/dL Albumin 3.4 L (3.8-4.9) g/dL
[2021-08-19] MEDS ORDERED: HYDROcodone/APAP 5-325MG 1 EACH TAB PO STA (19:07)
[2021-08-20] MEDS: SODIUM CHLORIDE 0.9% 1,000 ML IV SCH ×2 (02:36→20:24)
[2021-08-20] MEDS: LORazepam 2 MG/ML INJ IV PRN (03:20)
[2021-08-20 06:21] LABS: Basophils % (A) 0 %; Eosinophils # (A) 0.1 k/uL (0-0.7); Eosinophils % (A) 2 %; HCT 42.2 % (39.0-53.0); HGB 14.2 gm/dL (13.0-17.5); Lymphocytes # (A) 1.5 k/uL (1.0-4.8); Lymphocytes % (A) 22 %; MCH 31.8 pg (25.0-35.0); MCHC 33.6 g/dL (31.0-37.0); MCV 94.5 fL (80.0-100.0); Mean Platelet Volume 8.4; Monocytes # (A) 0.6 k/uL (0-1.0); Monocytes % (A) 9 %; Neutrophils # (A) 4.4 k/uL (1.3-7.7); Neutrophils % (A) 64 %; Platelet Count 177 k/uL (150-450); RBC 4.47 m/uL (4.30-5.90); RDW 13.3 % (11.5-15.5); WBC 6.9 k/uL (3.8-10.6)
[2021-08-20 06:26] VITALS: RESP 16
[2021-08-20 06:31] LABS: Chloride 99 mmol/L (98-107)
[2021-08-20 06:33] LABS: ALT 143 U/L (4-49); AST 441 U/L (17-59); African American GFR (CKD) >90 (>60 ml/min/1.73 sqM); Albumin 3.4 g/dL (3.5-5.0); Albumin/Globulin Ratio 1.2; Alkaline Phosphatase 108 U/L (38-126); Anion Gap 6 mmol/L; Blood Urea Nitrogen 5 mg/dL (9-20); Calcium 8.9 mg/dL (8.4-10.2); Carbon Dioxide 25 mmol/L (22-30); Globulin 2.9 g/dL; Glucose 75 mg/dL (74-99); Magnesium 1.8 mg/dL (1.6-2.3); Non-African American GFR(CKD) >90 (>60 ml/min/1.73 sqM); Potassium 3.3 mmol/L (3.5-5.1); Sodium 130 mmol/L (137-145); Total Bilirubin 4.1 mg/dL (0.2-1.3); Total Protein 6.3 g/dL (6.3-8.2)
[2021-08-20] MEDS ORDERED: Potassium Replacement Protocol 1 EACH MISC MISCELLANE PRN (07:30)
[2021-08-20] MEDS: PANTOPRAZOLE 40 MG/10 ML VIAL IVP SCH ×2 (08:01→20:24)
[2021-08-20] MEDS: THIAMINE 100 MG TAB PO SCH ×2 (08:01→16:51)
[2021-08-20] MEDS: LORazepam 1 MG TAB PO PRN ×2 (08:37→16:53)
[2021-08-20] MEDS: POTASSIUM CHLORIDE ER 20 MEQ TAB.ER PO SCH ×2 (08:37→11:22)
--- NOTE | 2021-08-21 01:19 | P.PN ---
Subjective Progress Note Date: 08/20/21 This is a 31-year-old male who was recently admitted with incessant nausea and vomiting also with a history of alcohol and is being closely monitored. Patient continues to have elevated bilirubin possibly hepatitis and bilirubin is elevated again today although liver functions are trending down. Patient is maintained on CIWA protocol and appears to be actively withdrawing with shakes. Patient denies any nausea or vomiting and tolerating diet. Lengthy discussion was had with the patient about discussing with family about ongoing alcohol use is patient could potentially benefit from alcohol rehab in the outpatient setting. Patient denies any chest pain or shortness of breath. Patient is extremely anxious with tremens noted. Ammonia level elevated at 40 today and will continue to monitor and repeat a.m. labs. 08/20/2021 Patient is seen in follow up this morning and tremens improving. Patient continues on CIWA protocol and will add oral anxiolytic. Patient is tolerating diet with no vomiting or nausea noted and will advance diet as tolerated. Family at the bedside and discussed outpatient rehab and AA for alcohol abuse. Bilirubin trending down and liver functions remain elevated. Encouraged strict alcohol abstinence. Potassium is 3.3 and will replace per protocol and repeat CMP in the am. Ammonia level normal today. Labs: White blood, 6.9, hemoglobin is 14.2, platelets are 177, sodium is 130, potassium 3.3, BUN 5, creatinine 0.54, magnesium 1.8, total bilirubin 4.1, AST 441, ALT 143, ammonia 23 Review of systems: Constitutional: No reports of fatigue, fever, or chills, extremely anxious Cardiovascular: No reports of chest pain or palpitations Respiratory: No reports of shortness of breath or cough GI: No reports of nausea, vomiting, or diarrhea : No reports of dysuria or retention Neurovascular: No reports of weakness or numbness All medications have been reviewed Active Medications Lorazepam (Lorazepam 2 Mg/Ml Inj) 1 mg IV Q2HR PRN PRN Reason: CIWA 8 or 9 Last Admin: 08/20/21 03:20 Dose: 1 mg Documented by: Lorazepam (Lorazepam 2 Mg/Ml Inj) 1 mg IV Q1HR PRN PRN Reason: CIWA 10 to 15 Last Admin: 08/19/21 22:14 Dose: 1 mg Documented by: Lorazepam (Lorazepam 1 Mg Tab) 1 mg PO Q8HR PRN PRN Reason: Anxiety Last Admin: 08/20/21 08:37 Dose: 1 mg Documented by: Miscellaneous Information (Magnesium Replacement Protocol 1 Each Misc) 1 each MISCELLANE DAILY PRN; Protocol PRN Reason: Per Protocol Miscellaneous Information (Potassium Replacement Protocol 1 Each Misc) 1 each MISCELLANE DAILY PRN; Protocol PRN Reason: Per Protocol Naloxone HCl (Naloxone 0.4 Mg/Ml 1 Ml Vial) 0.2 mg IV Q2M PRN PRN Reason: Opioid Reversal Ondansetron HCl (Ondansetron 4 Mg/2 Ml Vial) 4 mg IVP Q8HR PRN PRN Reason: Nausea And Vomiting Last Admin: 08/18/21 19:27 Dose: 4 mg Documented by: Pantoprazole Sodium (Pantoprazole 40 Mg/10 Ml Vial) 40 mg IVP BID [facility] Last Admin: 08/20/21 08:01 Dose: 40 mg Documented by: Prochlorperazine Maleate (Prochlorperazine Suppository 25 Mg Supp) 25 mg RECTAL Q12HR PRN PRN Reason: Nausea And Vomiting Thiamine HCl (Thiamine 100 Mg Tab) 100 mg PO BID-W/MEALS [facility] Last Admin: 08/20/21 08:01 Dose: 100 mg Documented by: Physical Exam: Gen: This is a 31-year-old male awake, alert and oriented 3, well-developed, well-nourished. Anxious. Temp is 98.6F, pulse is 63, respirations are 13, blood pressure is 114/76, oxygen saturation is 95% on room air. HEENT: Head is atraumatic, normocephalic. Pupils equal, round. Sclerae is anicteric. NECK: Supple. No JVD. No lymphadenopathy. No thyromegaly. LUNGS: Diminished breath sounds bilaterally with no wheezing or rhonchi noted. No intercostal retractions. HEART: S1, S2 are muffled ABDOMEN: Soft. Bowel sounds are present. No masses. No tenderness. EXTREMITIES: No pedal edema. No calf tenderness. NEUROLOGICAL: Patient is awake, alert and oriented x3. Cranial nerves 2 through 12 are grossly intact. Tremens noted and appears improved slightly Assessment: Increased nausea and vomiting, possibly acute gastritis Severe shakes and nausea, possibly withdrawal syndrome Possible delirium tremens History of EtOH abuse and alcoholic hepatitis possibly history of chronic intermittent asthma, ALLERGY induced History of hematochezia History of migraine history of whiplash MRSA Remote history of nicotine dependence History of THC Hypomagnesemia Possible PTSD as patient served in the [employer] Full code Plan: Recommend continue current medications and management and symptomatic treatment. We'll continue CIWA protocol as patient continues to have shakes and tremens noted. Continue low-dose oral Ativan as well for continued anxiety. Had another lengthy discussion with the patient and his family at the bedside and stated they had a discussion about his alcohol abuse of which he has been minimizing the severity with them and also discussed possible alcohol rehab and needing a strong support system. Patient hesitant about going to a rehab on discharge but will consider outpatient. Resources will be provided. Patient denies any abdominal pain and will slowly increase diet as tolerated. will repeat a.m. labs. We'll continue to monitor closely. Possible discharge in 24 hours. Objective - Vital Signs Vital signs: Vital Signs Temp 98.6 F 08/20/21 05:53 Pulse 63 08/20/21 05:53 Resp 16 08/20/21 05:53 BP 114/76 08/20/21 05:53 Pulse Ox 95 08/20/21 05:53 Intake & Output 08/19/21 08/20/21 08/20/21 18:59 06:59 18:59 Intake Total 1200 Balance 1200 Intake: Intake, IV Titration 1200 Amount Sodium Chloride 0.9% 1, 1200 000 ml @ 130 mls/hr IV . Q7H42M [facility] Rx#:[id number] Other: # Voids 3 3 - Labs CBC & Chem 7: 08/20/21 05:33 08/20/21 05:33 Labs: Abnormal Lab Results - Last 24 Hours (Table) 08/19/21 08/19/21 08/20/21 Range/Units 05:13 05:13 05:33 RBC 3.86 L (4.40-5.60) X 10*6/uL Hgb 12.3 L (13.0-17.0) g/dL Hct 37.7 L (39.6-50.0) % MCV 97.7 H (80.0-97.0) fL RDW 14.6 H (11.5-14.5) % Sodium 130 L (137-145) mmol/L Potassium 3.3 L (3.5-5.1) mmol/L BUN 5.7 L 5 L (9.0-27.0) mg/dL Creatinine 0.54 L (0.66-1.25) mg/dL BUN/Creatinine Ratio 8.14 L (12.00-20.00) Ratio Calcium 8.1 L (8.7-10.3) mg/dL Total Bilirubin 5.60 H 4.1 H (0.30-1.20) mg/dL AST 292 H 441 H (14-35) U/L ALT 127 H 143 H (10-49) U/L Total Protein 5.2 L (6.2-8.2) g/dL Albumin 3.4 L 3.4 L (3.8-4.9) g/dL
[2021-08-21] MEDS: LORazepam 1 MG TAB PO PRN ×2 (01:47→10:24)
[2021-08-21 06:46] LABS: ALT 152 U/L (4-49); AST 396 U/L (17-59); African American GFR (CKD) >90 (>60 ml/min/1.73 sqM); Albumin 3.2 g/dL (3.5-5.0); Albumin/Globulin Ratio 1.1; Alkaline Phosphatase 100 U/L (38-126); Anion Gap 6 mmol/L; Blood Urea Nitrogen 4 mg/dL (9-20); Calcium 8.8 mg/dL (8.4-10.2); Carbon Dioxide 27 mmol/L (22-30); Chloride 103 mmol/L (98-107); Globulin 2.9 g/dL; Glucose 78 mg/dL (74-99); Non-African American GFR(CKD) >90 (>60 ml/min/1.73 sqM); Potassium 3.6 mmol/L (3.5-5.1); Sodium 136 mmol/L (137-145); Total Bilirubin 2.8 mg/dL (0.2-1.3); Total Protein 6.1 g/dL (6.3-8.2)
[2021-08-21] MEDS: THIAMINE 100 MG TAB PO SCH (07:49)
[2021-08-21] MEDS: PANTOPRAZOLE 40 MG/10 ML VIAL IVP SCH (07:50)
[2021-08-21 08:00] VITALS: BP 124/84; PULSE 68; TEMP 98.2
[2021-08-21] MEDS ORDERED: PANTOPRAZOLE 40 MG TABLET PO SCH (21:00)
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
== END 2021-08-21 14:21 | disposition home or self-care (01) | DRG 897 ==
LOC: EC 10:59 → 4SSUR 17:08
PROVIDERS: ADMIT Hospitalist; ATTEND Hospitalist
DX: F10.231 Alcohol dependence with withdrawal delirium (principal); E87.2 Acidosis; E83.42 Hypomagnesemia; J45.20 Mild intermittent asthma, uncomplicated; Z20.822 Contact with and (suspected) exposure to COVID-19; K58.0 Irritable bowel syndrome with diarrhea; K70.9 Alcoholic liver disease, unspecified; K70.10 Alcoholic hepatitis without ascites; F43.10 Post-traumatic stress disorder, unspecified; Z80.3 Family history of malignant neoplasm of breast; Z80.8 Family history of malignant neoplasm of other organs or systems; Z86.14 Personal history of Methicillin resistant Staphylococcus aureus infection; Z87.891 Personal history of nicotine dependence
CPT/HCPCS: 36415; 74018; 76705; 80053; 80074; 80306; 80320; 81001; 82140; 82150; 83605; 83690; 83735; 85025; 85610; 85730; 87635; 93005; 96361; 96365; 96366; 96375; 99285

== ENCOUNTER 2021-09-01 04:35 | Emergency (ER) | payer OTHER ==
[2021-09-01 04:44] VITALS: TEMP 97
[2021-09-01] MEDS ORDERED: ONDANSETRON 4 MG/2 ML VIAL IVP STA (04:59)
[2021-09-01] MEDS ORDERED: SODIUM CHLORIDE 0.9% 1,000 ML IV ONE (04:59)
[2021-09-01] MEDS ORDERED: LORazepam 2 MG/ML INJ IV STA (04:59)
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
[2021-09-01 05:44] LABS: Basophils # (A) 0.1 k/uL (0-0.2); Basophils % (A) 2 %; Eosinophils # (A) 0.1 k/uL (0-0.7); Eosinophils % (A) 1 %; HCT 49.3 % (39.0-53.0); HGB 16.5 gm/dL (13.0-17.5); Lymphocytes # (A) 3.3 k/uL (1.0-4.8); Lymphocytes % (A) 40 %; MCH 33.1 pg (25.0-35.0); MCHC 33.5 g/dL (31.0-37.0); MCV 98.7 fL (80.0-100.0); Mean Platelet Volume 7.6; Monocytes # (A) 0.6 k/uL (0-1.0); Monocytes % (A) 8 %; Neutrophils # (A) 3.9 k/uL (1.3-7.7); Neutrophils % (A) 47 %; RDW 13.9 % (11.5-15.5); WBC 8.3 k/uL (3.8-10.6)
[2021-09-01 05:45] LABS: Platelet Count 639 k/uL (150-450)
[2021-09-01 06:09] LABS: ALT 71 U/L (4-49); AST 174 U/L (17-59); African American GFR (CKD) >90 (>60 ml/min/1.73 sqM); Albumin 4.8 g/dL (3.5-5.0); Alcohol 78 mg/dL; Alkaline Phosphatase 121 U/L (38-126); Amylase 131 U/L (30-110); Anion Gap 18 mmol/L; Blood Urea Nitrogen 11 mg/dL (9-20); Carbon Dioxide 20 mmol/L (22-30); Chloride 103 mmol/L (98-107); Glucose 104 mg/dL (74-99); Lipase 219 U/L (23-300); Magnesium 1.9 mg/dL (1.6-2.3); Non-African American GFR(CKD) >90 (>60 ml/min/1.73 sqM); Potassium 4.4 mmol/L (3.5-5.1); Sodium 141 mmol/L (137-145); Total Bilirubin 1.8 mg/dL (0.2-1.3); Total Protein 8.2 g/dL (6.3-8.2)
[2021-09-01 07:34] VITALS: BP 133/101; PULSE 108; RESP 18
== END 2021-09-01 07:34 | disposition home or self-care (01) ==
LOC: EC 04:35
DX: F10.239 Alcohol dependence with withdrawal, unspecified (principal); J45.909 Unspecified asthma, uncomplicated; F12.90 Cannabis use, unspecified, uncomplicated
CPT/HCPCS: 36415; 80053; 82150; 83690; 83735; 85025; 80320; 99284; 96374; 96375; J2060; J2405

== ENCOUNTER 2021-10-13 00:03 | Observation (INO) | payer OTHER ==
[2021-10-13] MEDS ORDERED: ONDANSETRON 4 MG/2 ML VIAL IVP STA (01:18)
[2021-10-13] MEDS ORDERED: LORazepam 2 MG/ML INJ IV STA (01:19)
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
[2021-10-13] MEDS ORDERED: SODIUM CHLORIDE 0.9% 1,000 ML with MVI, ADULT NO.4 WITH VIT K 10 ML, THIAMINE 100 MG, F... IV ONE ×4 (02:00)
[2021-10-13 02:05] LABS: Basophils # (A) 0.1 k/uL (0-0.2); Basophils % (A) 1 %; Eosinophils % (A) 0 %; HCT 52.1 % (39.0-53.0); HGB 17.9 gm/dL (13.0-17.5); Lymphocytes # (A) 3.9 k/uL (1.0-4.8); Lymphocytes % (A) 35 %; MCH 32.7 pg (25.0-35.0); MCHC 34.3 g/dL (31.0-37.0); MCV 95.4 fL (80.0-100.0); Mean Platelet Volume 6.9; Monocytes # (A) 0.5 k/uL (0-1.0); Monocytes % (A) 5 %; Neutrophils # (A) 6.1 k/uL (1.3-7.7); Neutrophils % (A) 56 %; Platelet Count 431 k/uL (150-450); RBC 5.46 m/uL (4.30-5.90); WBC 10.9 k/uL (3.8-10.6)
[2021-10-13 02:16] LABS: INR 1.1 (<1.2); Prothrombin Time 11.3 sec (9.0-12.0)
[2021-10-13] MEDS ORDERED: NALOXONE 0.4 MG/ML 1 ML VIAL IV PRN (03:06)
[2021-10-13] MEDS ORDERED: LORazepam 2 MG/ML INJ IV PRN ×2 (03:08)
[2021-10-13] MEDS: SODIUM CHLORIDE 0.9% 1,000 ML IV SCH ×2 (03:48→17:27)
[2021-10-13 04:05] LABS: ALT 30 U/L (4-49); AST 66 U/L (17-59); African American GFR (CKD) >90 (>60 ml/min/1.73 sqM); Albumin 4.4 g/dL (3.5-5.0); Alkaline Phosphatase 75 U/L (38-126); Anion Gap 12 mmol/L; Blood Urea Nitrogen 21 mg/dL (9-20); Calcium 8.6 mg/dL (8.4-10.2); Carbon Dioxide 25 mmol/L (22-30); Chloride 103 mmol/L (98-107); Glucose 122 mg/dL (74-99); Non-African American GFR(CKD) >90 (>60 ml/min/1.73 sqM); Potassium 4.9 mmol/L (3.5-5.1); Sodium 140 mmol/L (137-145); Total Bilirubin 2.4 mg/dL (0.2-1.3); Total Protein 7.5 g/dL (6.3-8.2)
[2021-10-13] MEDS: ONDANSETRON 4 MG/2 ML VIAL IVP PRN ×2 (06:58→14:24)
[2021-10-13] MEDS: FAMOTIDINE 20 MG TAB PO SCH ×2 (07:42→19:42)
[2021-10-13] MEDS: LORazepam 2 MG/ML INJ IV PRN ×5 (07:43→19:43)
[2021-10-13 09:33] LABS: Amorphous Sediment,Urine Rare /hpf; Appearance,Urine Cloudy (Clear); Bacteria,Urine Rare /hpf; Bilirubin,Urine Negative (Negative); Blood,Urine Negative (Negative); Color,Urine Yellow; Glucose,Urine (UA) Negative (Negative); Hyaline Casts,Urine 10 /lpf (0-2); Ketones,Urine Negative (Negative); Leukocyte Esterase,Urine Negative (Negative); Mucus,Urine Many /hpf; Nitrite,Urine Negative (Negative); PH, Urine 5.5 (5.0-8.0); Protein,Urine 1+ (Negative); RBC,Urine 1 /hpf (0-5); Specific Gravity,Urine 1.034 (1.001-1.035); Squamous Epithelial Cell,Urine 2 /hpf (0-4); Urobilinogen,Urine <2.0 mg/dL (<2.0); WBC,Urine 2 /hpf (0-5)
[2021-10-13 09:48] LABS: Amphetamine Screen,Urine Not Detected (NotDetected); Barbiturate Screen,Urine Not Detected (NotDetected); Benzodiazepines Screen,Urine Detected (NotDetected); Cocaine Screen,Urine Not Detected (NotDetected); Methadone Screen, Urine Not Detected (NotDetected); Opiate Screen,Urine Not Detected (NotDetected); Oxycodone Screen, Urine Not Detected (NotDetected); Phencyclidine Screen,Urine Not Detected (NotDetected); Tricyclic Antidepressant,Urine Not Detected (NotDetected); Urn Cannabinoid Scrn Not Detected (NotDetected)
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
--- NOTE | 2021-10-13 11:25 | P.DS ---
Providers Date of admission: 10/13/21 03:03 Attending physician: Leigh Andre Primary care physician: [facility] Hospital Course: Refer to my HPI for further details Plan - Discharge Summary Discharge Rx Participant: Yes New Discharge Prescriptions: New chlordiazePOXIDE HCl [Librium] 25 mg PO QID 3 Days #15 capsule Sertraline HCl [Zoloft] 50 mg PO DAILY #30 tablet No Action Folic Acid 1 mg PO DAILY Vitamin E (Dl,Tocopheryl Acet) [Vitamin E (400 Iu = 180 mg)] 400 unit PO DAILY Ubidecarenone [Co Q-10] 100 mg PO DAILY Thiamine [Vitamin B-1] 100 mg PO DAILY Discharge Medication List Folic Acid 1 mg PO DAILY 10/13/21 [History] Sertraline HCl [Zoloft] 50 mg PO DAILY #30 tablet 10/13/21 [Rx] Thiamine [Vitamin B-1] 100 mg PO DAILY 10/13/21 [History] Ubidecarenone [Co Q-10] 100 mg PO DAILY 10/13/21 [History] Vitamin E (Dl,Tocopheryl Acet) [Vitamin E (400 Iu = 180 mg)] 400 unit PO DAILY 10/13/21 [History] chlordiazePOXIDE HCl [Librium] 25 mg PO QID 3 Days #15 capsule 10/13/21 [Rx] Follow up Appointment(s)/Referral(s): [facility] [NON-STAFF] - 1 Week [facility] [Primary Care Provider] - 3 Days
[2021-10-13] MEDS: THIAMINE 100 MG TAB PO SCH (17:26)
[2021-10-13] MEDS ORDERED: KETOROLAC 30 MG/ML 1 ML VIAL IVP STA (19:25)
[2021-10-13] MEDS ORDERED: ACETAMINOPHEN TAB 325 MG TAB PO PRN (19:25)
[2021-10-14] MEDS: LORazepam 2 MG/ML INJ IV PRN ×2 (01:35→06:49)
[2021-10-14] MEDS: SODIUM CHLORIDE 0.9% 1,000 ML IV SCH (09:21)
[2021-10-14] MEDS: FAMOTIDINE 20 MG TAB PO SCH (09:21)
[2021-10-14] MEDS: THIAMINE 100 MG TAB PO SCH (09:21)
--- NOTE | 2021-10-14 11:24 | P.DS ---
Providers Date of admission: 10/13/21 03:03 Attending physician: Leigh Andre Primary care physician: [facility] Hospital Course: Patient is a 31-year-old male admitted for alcohol abuse and patient started drinking about 5 days ago patient was was sober for many months. Patient used to drink about a pint of hard liquor every day patient has not been drinking that much for last 5 days and started drinking 5 days ago. Patient had withdrawals in the past but was not severe enough to be hospitalized. Patient denied any fever chills abdominal pain nausea vomiting patient is definitely depressed denied any suicidal or homicidal ideations although patient has financial issues because of which patient is going to be depressed. 10/14/2021 Patient was bit tachycardic as today because of which are a held his discharge yesterday. Patient didn't have any significant withdrawals patient heart rate is better today. Patient only required 1 dose of Ativan today patient will be discharged on weaning doses of Librium and will be discharged today. PHYSICAL EXAMINATION: GENERAL: The patient is alert and oriented x3, not in any acute distress. Well developed, well nourished. HEENT: Pupils are round and equally reacting to light. EOMI. No scleral icterus. No conjunctival pallor. Normocephalic, atraumatic. No pharyngeal erythema. No thyromegaly. CARDIOVASCULAR: S1 and S2 present. No murmurs, rubs, or gallops. PULMONARY: Chest is clear to auscultation, no wheezing or crackles. ABDOMEN: Soft, nontender, nondistended, normoactive bowel sounds. No palpable organomegaly. MUSCULOSKELETAL: No joint swelling or deformity. EXTREMITIES: No cyanosis, clubbing, or pedal edema. NEUROLOGICAL: Gross neurological examination did not reveal any focal deficits. SKIN: No rashes. Assessment and plan -Alcohol abuse: Counseling was provided extensively patient is willing to quit alcohol and social work was consulted who will provide all the resources for alcohol rehabilitation. Patient does have vivitrol at home she doesn't have any significant withdrawals will be discharged today -Alcohol withdrawal: Patient received 1 dose of Ativan. Patient is presently on Ativan CIWA protocol. he started drinking only 5 days ago. Patient will be discharged on the weaning dose of Librium. Patient will follow with, to mental health -Major depression: Patient does take BuSpar used to take Zoloft and requesting Zoloft prescription patient will be provided with this prescription also counseled antidepressant will be effective with alcohol use -Mild leukocytosis reactive without any evidence of infection Patient will be discharged today with weaning dose of Librium and antidepressants. Plan - Discharge Summary Discharge Rx Participant: Yes New Discharge Prescriptions: New chlordiazePOXIDE HCl [Librium] 25 mg PO QID 3 Days #15 capsule Sertraline HCl [Zoloft] 50 mg PO DAILY #30 tablet No Action Folic Acid 1 mg PO DAILY Vitamin E (Dl,Tocopheryl Acet) [Vitamin E (400 Iu = 180 mg)] 400 unit PO DAILY Ubidecarenone [Co Q-10] 100 mg PO DAILY Thiamine [Vitamin B-1] 100 mg PO DAILY Discharge Medication List Folic Acid 1 mg PO DAILY 10/13/21 [History] Sertraline HCl [Zoloft] 50 mg PO DAILY #30 tablet 10/13/21 [Rx] Thiamine [Vitamin B-1] 100 mg PO DAILY 10/13/21 [History] Ubidecarenone [Co Q-10] 100 mg PO DAILY 10/13/21 [History] Vitamin E (Dl,Tocopheryl Acet) [Vitamin E (400 Iu = 180 mg)] 400 unit PO DAILY 10/13/21 [History] chlordiazePOXIDE HCl [Librium] 25 mg PO QID 3 Days #15 capsule 10/13/21 [Rx] Follow up Appointment(s)/Referral(s): [facility] [NON-STAFF] - 1 Week (Office not answering.. Please call to schedule appointment) [facility],Clinic [Primary Care Provider] - 10/17/21 1:00 pm Patient Instructions/Handouts: Alcohol Intoxication (DC), Abuse of Alcohol (DC) Discharge Disposition: HOME SELF-CARE
[2021-10-14 14:29] VITALS: BP 130/87; PULSE 83; RESP 18; TEMP 97.9
--- NOTE | 2021-10-19 10:10 | CDI ---
Dear Dr. Reddy, Please clarify if the patient with history of alcoholism is in withdrawl during this visit. Patient arrived to the EC with alcohol level of 327. CIWA score is 8. The patient is experiencing nausea, vomiting, shakiness, tremors, sweating, anxiety and agitation for the past hours as reported in the EC department. Pt given Zofran, Ativan and Parenteral Vitamin Supplement in the EC. Upon discharge, patient received 1 dose of Ativan and will be discharged on weaning dose of Librium. He has vivitrol at home and doesn't have any significant withdrawls. The patient was counseled on alcohol abuse and rehabilitation. Please document below the line, if the patient was or was not in alcohol withdrawl during this visit. Thank you, Gisel Santana Patient had alcohol withdrawals during hospitalization [facility]
== END 2021-10-14 15:45 | disposition home or self-care (01) ==
LOC: EC 00:03 → 4SSUR 03:03
PROVIDERS: ADMIT Hospitalist; ATTEND Hospitalist
DX: F10.239 Alcohol dependence with withdrawal, unspecified (principal); F10.229 Alcohol dependence with intoxication, unspecified; R00.0 Tachycardia, unspecified; F32.9 Major depressive disorder, single episode, unspecified; D72.829 Elevated white blood cell count, unspecified; J45.909 Unspecified asthma, uncomplicated; H93.19 Tinnitus, unspecified ear; E86.0 Dehydration; F41.9 Anxiety disorder, unspecified; G43.909 Migraine, unspecified, not intractable, without status migrainosus; L85.3 Xerosis cutis; K58.0 Irritable bowel syndrome with diarrhea; Z20.822 Contact with and (suspected) exposure to COVID-19; Z71.41 Alcohol abuse counseling and surveillance of alcoholic; Z71.89 Other specified counseling; Z59.9 Problem related to housing and economic circumstances, unspecified; Z86.14 Personal history of Methicillin resistant Staphylococcus aureus infection; Z87.828 Personal history of other (healed) physical injury and trauma; Z87.891 Personal history of nicotine dependence; Z79.899 Other long term (current) drug therapy; Z88.0 Allergy status to penicillin; Y90.8 Blood alcohol level of 240 mg/100 ml or more; Z80.3 Family history of malignant neoplasm of breast; Z80.8 Family history of malignant neoplasm of other organs or systems
CPT/HCPCS: 96376 ×2; 96375 ×2; 96374; 99284; 36415; 80053; 82150; 83690; 83735; 85025; 85610; 81001; 80306; 80320; 87635; G0378 ×2; J2060 ×2; J3411; J2405; J1885

== ENCOUNTER 2021-10-19 15:53 | Observation (INO) | payer OTHER ==
[2021-10-19] MEDS ORDERED: SODIUM CHLORIDE 0.9% 1,000 ML with THIAMINE 100 MG, FOLIC ACID 1 MG IV ONE ×3 (16:26)
[2021-10-19] MEDS ORDERED: MULTIVITAMINS, THERA 1 EACH TAB PO STA (16:28)
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
[2021-10-19 17:38] LABS: Prothrombin Time 10.9 sec (9.0-12.0)
[2021-10-19 17:54] LABS: Acetaminophen <10.0 ug/mL
[2021-10-19 18:01] LABS: MCH 32.6 pg (25.0-35.0); MCHC 33.5 g/dL (31.0-37.0); MCV 97.5 fL (80.0-100.0); Mean Platelet Volume 7.1; Platelet Count 344 k/uL (150-450); RBC 4.51 m/uL (4.30-5.90); RDW 13.5 % (11.5-15.5); WBC 6.1 k/uL (3.8-10.6)
[2021-10-19 18:04] LABS: HGB 14.7 gm/dL (13.0-17.5)
[2021-10-19 18:05] LABS: Alcohol 349 mg/dL
[2021-10-19 18:29] LABS: Eosinophils # (M) 0.31 k/uL (0-0.7); Lymphocytes # (M) 2.99 k/uL (1.0-4.8); Metamyelocytes # (M) 0.12 k/uL (0); Metamyelocytes % 2 %; Monocytes # (M) 0.49 k/uL (0-1.0); Neutrophils % (M) 36 %; Nucleated Red Blood Cells 0 /100 WBC (0-0); Total Cells Counted 100
[2021-10-19] MEDS ORDERED: LORazepam 2 MG/ML INJ IV PRN ×3 (18:41)
[2021-10-19] MEDS ORDERED: THIAMINE 100 MG/ML 2 ML VIAL IM STA (18:41)
[2021-10-19] MEDS ORDERED: ACETAMINOPHEN TAB 325 MG TAB PO PRN (18:43)
[2021-10-19] MEDS ORDERED: ONDANSETRON 4 MG/2 ML VIAL IVP PRN (18:43)
[2021-10-19] MEDS ORDERED: NALOXONE 0.4 MG/ML 1 ML VIAL IV PRN (18:43)
[2021-10-19 19:23] LABS: ALT 26 U/L (4-49); AST 56 U/L (17-59); African American GFR (CKD) >90 (>60 ml/min/1.73 sqM); Albumin 4.5 g/dL (3.5-5.0); Alkaline Phosphatase 62 U/L (38-126); Anion Gap 15 mmol/L; Blood Urea Nitrogen 11 mg/dL (9-20); Carbon Dioxide 23 mmol/L (22-30); Chloride 107 mmol/L (98-107); Glucose 95 mg/dL (74-99); Non-African American GFR(CKD) >90 (>60 ml/min/1.73 sqM); Potassium 4.3 mmol/L (3.5-5.1); Sodium 145 mmol/L (137-145); Total Bilirubin 1.3 mg/dL (0.2-1.3); Total Protein 7.7 g/dL (6.3-8.2)
[2021-10-20] MEDS ORDERED: THIAMINE 100 MG TAB PO SCH (07:30)
[2021-10-20 07:48] LABS: African American GFR (CKD) >90 (>60 ml/min/1.73 sqM); Anion Gap 5 mmol/L; Blood Urea Nitrogen 13 mg/dL (9-20); Calcium 8.2 mg/dL (8.4-10.2); Carbon Dioxide 28 mmol/L (22-30); Chloride 107 mmol/L (98-107); Glucose 76 mg/dL (74-99); Magnesium 1.8 mg/dL (1.6-2.3); Non-African American GFR(CKD) >90 (>60 ml/min/1.73 sqM); Potassium 4.1 mmol/L (3.5-5.1); Sodium 140 mmol/L (137-145)
[2021-10-20] MEDS ORDERED: FOLIC ACID 1 MG TAB PO SCH (09:00)
[2021-10-20] MEDS ORDERED: HEPARIN SODIUM,PORCINE/PF 5,000 UNIT/0.5 ML SYRINGE SQ SCH (09:00)
[2021-10-20] MEDS ORDERED: FAMOTIDINE 20 MG/2 ML VIAL IV SCH (09:00)
[2021-10-20] MEDS ORDERED: SERTRALINE 50 MG TAB PO SCH (09:00)
[2021-10-20 14:34] VITALS: BP 150/95; PULSE 55; RESP 17; TEMP 98.3
[2021-10-20] MEDS ORDERED: busPIRone HCl 10 MG TAB PO SCH (14:37)
[2021-10-20] MEDS ORDERED: SERTRALINE 50 MG TAB PO STA (14:37)
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
[2021-10-20] MEDS ORDERED: NALTREXONE HCL 50 MG TAB PO SCH (14:45)
[2021-10-21] MEDS ORDERED: SERTRALINE 100 MG TAB PO SCH (09:00)
== END 2021-10-20 16:03 | disposition home or self-care (01) ==
LOC: EC 15:53 → 6NMEDSUR 19:25
PROVIDERS: ADMIT Internal Medicine; ATTEND Internal Medicine
DX: F10.129 Alcohol abuse with intoxication, unspecified (principal); F43.10 Post-traumatic stress disorder, unspecified; F41.9 Anxiety disorder, unspecified; R45.1 Restlessness and agitation; R44.3 Hallucinations, unspecified; H53.9 Unspecified visual disturbance; Z20.822 Contact with and (suspected) exposure to COVID-19; Y90.8 Blood alcohol level of 240 mg/100 ml or more; J45.909 Unspecified asthma, uncomplicated; K58.9 Irritable bowel syndrome, unspecified; Z79.899 Other long term (current) drug therapy; Z88.0 Allergy status to penicillin; Z71.89 Other specified counseling; Z71.41 Alcohol abuse counseling and surveillance of alcoholic; Z86.14 Personal history of Methicillin resistant Staphylococcus aureus infection; Z80.3 Family history of malignant neoplasm of breast; Z81.1 Family history of alcohol abuse and dependence
CPT/HCPCS: 99285; 96372; 96374; 96375; 82075; 36415; 80053; 80048; 83735; 85025; 85610; 80143; 80320; 87635; G0378 ×2; J2060; J3411; J1644

== ENCOUNTER → 2022-02-21 | Outpatient (CLI) | payer OTHER ==
--- NOTE | 2022-02-22 06:10 | MR ---
EXAMINATION TYPE: MR lumbar spine wo con DATE OF EXAM: 02/21/2022 COMPARISON: CT abdomen July 05, 2021 HISTORY: Low back pain, numbness in right leg above ankle. TECHNIQUE: Multiplanar, multisequence imaging of the lumbar spine is performed without IV contrast. FINDINGS: Sagittal images of the lumbar spine show vertebral body heights and alignment to appear sat isfactory. There is disc desiccation at L4-L5 and L5-S1 levels with mild to moderate disc space narro wing L5-S1 level. The conus medullaris is somewhat high in position ending superior T12 level. No ab normal signal is evident. No suspicious clumping of lumbosacral nerve roots. The bone marrow signal intensity is within normal limits. Axial images show T12-L1, L1-L2, L2-L3, and L3-L4 levels all to appear within normal limits. Axial images at L4-L5 level show focal central disc protrusion mildly effacing anterior thecal sac wi th mild facet arthropathy bilaterally. Bilateral neural foramina are patent. Axial images at L5-S1 level show focal central disc protrusion minimally effacing the anterior thecal sac. Patent bilateral neural foramina. Paraspinal muscle bulk is preserved. IMPRESSION: Mild degenerative changes in the lower lumbar spine as detailed above.
== END | disposition home or self-care (01) ==
LOC: RADMRIMAIN 19:56
PROVIDERS: ATTEND Physician Assistant
DX: M47.816 Spondylosis without myelopathy or radiculopathy, lumbar region (principal); M51.26 Other intervertebral disc displacement, lumbar region; M99.73 Connective tissue and disc stenosis of intervertebral foramina of lumbar region
CPT/HCPCS: 72148